=== PATIENT | male | born 1995 | race African-American/Black ===

== ENCOUNTER 2024-11-30 15:24 | Emergency (ER) | payer OTHER ==
--- NOTE | 2024-11-30 15:45 | ER ---
Nurse's Notes [facility] Name: Nikolai Woods Age: 29 yrs Sex: Male : 1995 Arrival Date: 11/30/2024 Time: 15:24 Bed IW8 Private MD: Diagnosis: Hordeolum internum right upper eyelid Presentation: 11/30 15:37 Chief complaint: Patient states: R eye red, itchy, irritating off/ on for 2 weeks. No ll1 fever. Coronavirus screen: Client denies travel out of the [place] in the last 14 days. At this time, the client does not indicate any symptoms associated with coronavirus-19. Ebola Screen: Patient denies travel to an Ebola-affected area in the 21 days before illness onset. Initial Sepsis Screen: Does the patient meet any 2 criteria? No. Patient's initial sepsis screen is negative. Does the patient have a suspected source of infection? No. Patient's initial sepsis screen is negative. Risk Assessment: Do you want to hurt yourself or someone else? Patient reports no desire to harm self or others. Onset of symptoms was November 16, 2024. 15:37 Method Of Arrival: Ambulatory ll1 15:37 Acuity: KATHARINE 4 ll1 Triage Assessment: 15:39 General: Appears uncomfortable, Behavior is calm, cooperative, appropriate for age. ll1 Pain: Complains of pain in right eye Pain currently is 1 out of 10 on a pain scale. Quality of pain is described as aching. EENT: Reports pain in right eye tearing, irritation. Historical: - Allergies: 15:39 No Known Allergies; ll1 - Home Meds: 15:39 None [Active]; ll1 - PMHx: 15:39 None; ll1 - PSHx: 15:39 None; ll1 - Immunization history:: Adult Immunizations up to date. - Infectious Disease History:: Denies. - Social history:: Smoking status: Patient denies any tobacco usage or history of. Screenin:53 [facility] ED Fall Risk Assessment (Adult) History of falling in the last 3 months, ll1 including since admission No falls in past 3 months (0 pts) Confusion or Disorientation No (0 pts) Intoxicated or Sedated No (0 pts) Impaired Gait No (0 pts) Mobility Assist Device Used No (0 pt) Altered Elimination No (0 pt) Score/Fall Risk Level 0 - 2 = Low Risk Maintained a safe environment, Hourly rounding (assess needs \T\ fall precautionary measures) done. Abuse screen: Denies threats or abuse. Nutritional screening: No deficits noted. Tuberculosis screening: No symptoms or risk factors identified. Assessment: 15:53 Reassessment: No changes from previously documented assessment. Patient and/or family ll1 updated on plan of care and expected duration. Pain level reassessed. Patient is alert, oriented x 3, equal unlabored respirations, skin warm/dry/pink. Vital Signs: 15:37 BP 126 / 86; Pulse 61; Resp 17; Temp 97.9; Pulse Ox 99% ; Weight 70.31 kg; Height 6 ft. ll1 1 in. ; Pain 1/10; 15:37 Body Mass Index 20.45 (70.31 kg, 185.42 cm) ll1 15:37 Pain Scale: Adult ll1 ED Course: 15:29 Patient arrived in ED. gl 15:32 [facility] sb4 15:32 Eliane Santiago MD is Attending Physician. sb4 15:39 Triage completed. ll1 15:39 Arm band placed on. ll1 15:40 Patient has correct armband on for positive identification. Provided Education on: ER ll1 procedures and process. 15:44 Srinivasan Hicks MD is Referral Physician. sb4 15:53 Kia Calderon RN is Primary Nurse. ll1 15:54 No provider procedures requiring assistance completed. Patient did not have IV access ll1 during this emergency room visit. Administered Medications: No medications were administered Medication: 15:54 VIS not applicable for this client. ll1 Outcome: 15:45 Discharge ordered by . sb4 15:54 Discharged to home ambulatory, ll1 15:54 Condition: stable 15:54 Discharge instructions given to patient, Instructed on discharge instructions, follow up and referral plans. Demonstrated understanding of instructions, follow-up care, 15:54 Patient left the ED. ll1 Signatures: Kia Calderon RN RN ll1 Anna Hanna PA-C PA-C sb4 Adriana Vang, Reg Reg gl
--- NOTE | 2024-11-30 15:46 | EDPHYS ---
Physician Documentation [facility] Name: Nikolai Woods Age: 29 yrs Sex: Male : 1995 Arrival Date: 11/30/2024 Time: 15:24 Bed IW8 Private MD: ED Physician Eliane Santiago HPI: 11/30 17:13 This 29 yrs old Black Male presents to ER via Ambulatory with complaints of Redness of sb4 Eye. 17:13 patient reports pain, swelling, itchiness, redness in right eye intermittently x 2 sb4 weeks. has been using OTC drops without significant relief in symptoms. no discharge, no blurry vision, or visual changes. does not wear glasses or contacts. denies any trauma or injury to the eye. Historical: - Allergies: 15:39 No Known Allergies; ll1 - Home Meds: 15:39 None [Active]; ll1 - PMHx: 15:39 None; ll1 - PSHx: 15:39 None; ll1 - Immunization history:: Adult Immunizations up to date. - Infectious Disease History:: Denies. - Social history:: Smoking status: Patient denies any tobacco usage or history of. ROS: 17:13 Constitutional: Negative for fever, chills, and weight loss, sb4 17:13 Eyes: Positive for foreign body sensation, redness, swelling, 17:13 All other systems are negative, Exam: 17:13 Constitutional: This is a well developed, well nourished patient who is awake, alert, sb4 and in no acute distress. Head/Face: Normocephalic, atraumatic. ENT: Mucous membranes moist. Respiratory: No increased work of breathing, no retractions or nasal flaring. Skin: Warm, dry with normal turgor. Normal color with no rashes, no lesions, and no evidence of cellulitis. 17:13 Eyes: Periorbital structures: appear normal, no acute changes, Pupils: equal, round, and reactive to light and accomodation, Extraocular movements: intact throughout, Conjunctiva: normal, no acute changes, Lids and lashes: stye, on the left lid, upper inner, Vital Signs: 15:37 BP 126 / 86; Pulse 61; Resp 17; Temp 97.9; Pulse Ox 99% ; Weight 70.31 kg; Height 6 ft. ll1 1 in. ; Pain 07/21; 15:37 Body Mass Index 20.45 (70.31 kg, 185.42 cm) ll1 15:37 Pain Scale: Adult ll1 MDM: 15:34 Medical Screening Exam initiated sb4 17:13 Data reviewed: vital signs, nurses notes, and as a result, I will discharge patient. sb4 Counseling: I had a detailed discussion with the patient and/or guardian regarding the historical points, exam findings, and any diagnostic results supporting the discharge/admit diagnosis, the need for outpatient follow up, an opthalmologist, to return to the emergency department if symptoms worsen or persist or if there are any questions or concerns that arise at home. Administered Medications: No medications were administered Disposition Summary: 11/30/24 15:45 Discharge Ordered Notes: Location: Home sb4 Problem: an ongoing problem sb4 Symptoms: are unchanged sb4 Condition: Stable sb4 Diagnosis - Hordeolum internum right upper eyelid sb4 Followup: sb4 - With: Srinivasan Hicks MD - When: 1 week - Reason: Recheck today's complaints, Re-evaluation by your physician Discharge Instructions: - Discharge Summary Sheet sb4 - [facility] sb4 Forms: - Patient Portal Instructions sb4 - Leadership Thank You Letter sb4 Signatures: Kia Calderon RN RN ll1 Anna Hanna PA-C PA-C sb4
[2024-11-30 16:22] VITALS: BP 126/86; TEMP 97.9; O2SAT 99
== END 2024-11-30 15:54 | disposition home or self-care (01) ==
LOC: ER 15:24
DX: H00.021 Hordeolum internum right upper eyelid (principal)
CPT/HCPCS: 99282